=== PATIENT | female | born 1960 | race Caucasian/White ===

== ENCOUNTER 2020-02-16 14:26 | Outpatient (CLI) | payer OTHER, SELFPAY ==
--- NOTE | ~2020-02-16 | CT_ITS ---
EXAMINATION: CT ankle RT wo con DATE: 02/16/2020 15:53 INDICATION: Calcaneal nonunion TECHNIQUE: High resolution computed tomography (CT) of the right ankle and foot was performed without intravenous contrast. Additional sagittal and coronal reconstructions were performed. Automated expo sure control and iterative reconstruction technique were employed. The dose-length product was [id number] mGy-cm. COMPARISON: Right ankle MRI dated 09/24/2018 FINDINGS: Interval calcaneal osteotomy and bone grafting centered at the angle of Gissane likely for treatment of suspected lateral hindfoot impingement based upon findings of prior MRI. There is no discernible l ucency at the medial and inferior margins of the bone grafting with only minimal lucency at the bone graft interface along portions of the dorsal and lateral sides of the graft suggesting solid incorpor ation. Bone alignment appears normal with reduction in the prior suggested pes planus although this i s not diagnostically evaluated on nonweightbearing imaging. Again seen are cystic changes at the calc aneus anterior to the angle of Gissane and at the base of the sustentaculum annel as well as along the juxtaposed plantar aspect of the anterolateral calcaneus anterior to the articular surface of the po sterior facet of the subtalar joint. Mild cystic changes also is present at the tip of the lateral ma lleolus which along with the cystic change at the talus and calcaneus are likely related to chronic l ateral hindfoot impingement. There are couple small heterotopic ossicles along the anterior margin of the medial malleolus likely related to chronic anterior superficial deltoid ligament sprain. No frac ture. Bone island at the second metatarsal diaphysis. Mild polyarticular osteoarthritis at the right ankle and at multiple joints in the mid and hindfoot. No ankle joint effusion or other abnormal fluid collections. Os trigonum at the posterior recess of the ankle. Moderate-sized plantar calcaneal spur . IMPRESSION: 1. There appears to be solid incorporation of bone graft material placed at a calcaneal osteotomy und erlying the angle of Gissane likely for correction of lateral hindfoot impingement. 2. Mild polyarticular osteoarthritis at the right ankle, mid and hindfoot. Reviewed, dictated and finalized at location A. IMPRESSION: 1. There appears to be solid incorporation of bone graft material placed at a c alcaneal osteotomy underlying the angle of Gissane likely for correction of lat eral hindfoot impingement. 2. Mild polyarticular osteoarthritis at the right ankle, mid and hindfoot.
== END 2020-02-16 14:27 | disposition home or self-care (01) ==
PROVIDERS: PCP Internal Medicine; Visit Provider Podiatrist Foot & Ankle Surgery
DX: S92.014 Nondisplaced fracture of body of right calcaneus (principal); M19.071 Primary osteoarthritis, right ankle and foot
CPT/HCPCS: 73700

== ENCOUNTER 2020-11-22 14:01 | Outpatient (CLI) | payer OTHER, SELFPAY ==
--- NOTE | ~2020-11-22 | XR_ITS ---
XR knee RT 3V DATE: 11/22/2020 14:25 INDICATION: Right knee pain. Inability to bend knee or blood pressure on leg. Cortisone shot on 2020 TECHNIQUE: 3 views COMPARISON: None FINDINGS: There is distention of the suprapatellar bursa consistent with joint effusion. No fracture or dislocation, periosteal reaction or bone destruction. No radiopaque intra-articular lo ose body or chondrocalcinosis. Joint spaces are well preserved. IMPRESSION: Joint effusion Reviewed, dictated and finalized at location A. STANT PROFESSOR OF BUSINESS IMPRESSION: Joint effusion
== END 2020-11-22 14:02 | disposition home or self-care (01) ==
LOC: CHSIMG 14:02
PROVIDERS: PCP Internal Medicine; Visit Provider Internal Medicine
DX: M25.561 Pain in right knee (principal)
CPT/HCPCS: 73562

== ENCOUNTER 2020-12-11 08:06 | Outpatient (CLI) | payer OTHER, SELFPAY ==
--- NOTE | ~2020-12-11 | XR_ITS ---
EXAMINATION: XR knee RT min 4V DATE: 12/11/2020 08:30 INDICATION: Medial right knee pain TECHNIQUE: Weight bearing AP, flexed lateral and sunrise views of the right knee were obtained COMPARISON: 11/22/2020 FINDINGS: Alignment is normal. No fracture. Joint spaces are normal. Interval resolution of the prior right kn ee joint effusion. Soft tissues are unremarkable. IMPRESSION: 1. Normal right knee radiographs. Reviewed, dictated and finalized at location D.
== END 2020-12-11 08:07 | disposition home or self-care (01) ==
LOC: CHSIMG 08:08
PROVIDERS: PCP Internal Medicine; Visit Provider Orthopaedic Surgery
DX: M25.561 Pain in right knee (principal)
CPT/HCPCS: 73564

== ENCOUNTER 2021-02-21 08:37 | Outpatient (CLI) | payer OTHER, SELFPAY ==
--- NOTE | 2021-02-21 08:45 | ECG_ITS ---
Measurements Intervals [place] Rate: 57 P: 58 CA: 196 QRS: -8 QRSD: 101 T: 8 QT: 422 QTc: 411 Interpretive Statements SINUS BRADYCARDIA POOR R WAVE PROGRESSION, ANTERIOR LEADS BORDERLINE T WAVE ABNORMALITY- INFERIOR LEADS BASELINE ARTIFACT- I, III, AVR, AVL, AVF, V1-V6 BORDERLINE ECG Electronically Signed On 02-21-2021 9:06:09 CDT by Ganesh Treadwell D.O.
[2021-02-21 09:50] LABS: Anion Gap 9 mmol/L (8-16); Blood Urea Nitrogen 16 mg/dL (7-17); Calcium 9.6 mg/dL (8.4-10.2); Carbon Dioxide 26 mmol/L (22-30); Chloride 107 mmol/L (98-107); Estimated Glomerular Filt Rate > 60; Glucose 98 mg/dL (65-105); Potassium 4.3 mmol/L (3.4-5.0); Sodium 142 mmol/L (137-145)
== END 2021-02-21 08:38 | disposition home or self-care (01) ==
LOC: ANHSURGERY 08:42
PROVIDERS: Anesthesiology; PCP Internal Medicine; Visit Provider Orthopaedic Surgery
DX: Z01.818 Encounter for other preprocedural examination (principal); I48.91 Unspecified atrial fibrillation; Z51.81 Encounter for therapeutic drug level monitoring; Z79.899 Other long term (current) drug therapy; R00.1 Bradycardia, unspecified; I10 Essential (primary) hypertension
CPT/HCPCS: 36415; 80048; 93005

== ENCOUNTER → 2021-03-09 01:16 | Outpatient (CLI) | payer OTHER, SELFPAY ==
[2021-03-09 17:56] LABS: SARS-CoV-2 RNA PCR Negative
== END ==
PROVIDERS: PCP Internal Medicine; Visit Provider Orthopaedic Surgery
DX: Z01.812 Encounter for preprocedural laboratory examination (principal); Z20.822 Contact with and (suspected) exposure to COVID-19
CPT/HCPCS: C9803; U0003; U0005

== ENCOUNTER 2021-03-13 01:00 | Day surgery (SDC) | payer OTHER, SELFPAY ==
[2021-02-14 13:29] VITALS: BMI 35.4
--- NOTE | 2021-03-07 08:34 | PC.NURSE ---
Pt states no changes in health history or medications since initial interview. New Covid date/time and pre-op instructions reviewed with pt. Pt denies any questions at this time.
--- NOTE | 2021-03-12 13:51 | WPDANESEPPF ---
Anes - Initial Pre Proc Eval Procedure: Operation Date: 03/13/21 13:30 Proposed Procedures p Right Knee Arthroscopy With Allograft Reconstruction Of Medial Femoral Condyle, Proceed As Indicated - Vahid Mccormick MD Date/Time: 03/12/21 13:51 Surgeon: Vahid Mccormick MD Pre Op Diagnosis: lateral/medial meniscus tear, Right knee Patient Data Age: 60 Gender: F Height: 1.79 m Weight: 113.4 kg Allergies Allergy/AdvReac Type Severity Reaction Status Date / Time No Known Allergies Allergy Verified 03/07/21 08:33 Home Medications Medication Instructions Recorded Confirmed Type aspirin 325 mg tablet 325 mg PO HS 12/12/20 03/07/21 History atorvastatin 10 mg tablet 10 mg PO HS 12/12/20 03/07/21 History escitalopram oxalate 10 mg tablet 10 mg PO DAILY 12/12/20 03/07/21 History magnesium oxide 400 mg PO DAILY 12/12/20 03/07/21 History propafenone 225 mg 225 mg PO BID 12/12/20 03/07/21 History capsule,extended release 12 hr spironolactone 25 mg tablet 25 mg PO DAILY 12/12/20 03/07/21 History chlorhexidine gluconate 4 % 1 applic TOPICAL ONCE #237 ml 02/14/21 03/07/21 Rx topical liquid Patient hx anesthesia problems: none Family hx anesthesia problems: none PMFSH Past Medical History Medical History (Updated 03/12/21 @ 13:53 by Shlomo Tello MD) Afib Anxiety Depression HTN (hypertension) Hyperlipidemia Obesity Osteochondritis dissecans of knee Right knee pain Surgical History Surgical History History of ankle surgery 2019, Dr. Susan Elias Family History Family History Other Asthma Cancer Heart disease Social History Social History Alcohol intake: current Drinks per week: 2 Substance use: never Substance use type: does not use Living arrangements: with family Gender identity (if verbalized by the patient): Female Spiritual care concerns: No Anes - Eval Final PreProcedure Day of Procedure 03/12/21 13:51 Patient weight: obese Heart: regular rate and rhythm Lungs: clear to auscultation and normal air movement Airway: Mallampati scale class II Neurological: alert and oriented Last oral intake: >/= 8 hours ASA classification: III Emergent: no Anesthetic plan: proceed Anesthesia type and monitoring: general LMA Informed Consent: The patient's anesthetic plan and its attendant risks and benefits were discussed with the patient/family/POA. Questions were solicited and answers provided to the satisfaction of the patient/family/POA.
[2021-03-13] VITALS (8 sets, daily range): BP systolic 125–163; BP diastolic 63–95; PULSE 57–67; RESP 10–18; TEMP 36.1–36.3; O2SAT 95–99
--- NOTE | 2021-03-13 07:23 | WPDHPUPDATE1 ---
History and Physical Update Update Date/Time: 03/13/21 07:23 History and Physical has been reviewed, including an updated exam of the patient. There are NO changes in the patient's condition. Risks, benefits, and alternatives have been discussed and questions answered. Patient agrees to proceed with procedure.
[2021-03-13] MEDS: ACETAMINOPHEN 500 MG TABLET 1000 MG PO (12:02)
[2021-03-13] MEDS: CELECOXIB 200 MG CAPSULE PO (12:06)
[2021-03-13] MEDS: LACTATED RINGERS 1,000 ML 30 ML IV CONT ×2 (12:40→15:52)
[2021-03-13] MEDS: ceFAZolin 2 GM/D5W 50 ML 2 GM/50 ML BAG IVPB (13:35)
--- NOTE | 2021-03-13 15:27 | W.PM.PROC2 ---
Procedure Note - Detailed Date of Procedure 03/13/21 Pre-op Diagnosis lateral/medial meniscus tear, osteochondral defect medial femoral condyle Right knee Post-op Diagnosis same Procedure Performed RIGHT KNEE SCOPE Surgeon Vahid Mccormick MD Anesthesia general Description of Procedure PATIENT WAS TAKEN TO THE OR. RIGHT LEG WAS PREPPED AND DRAPED STERILE. TROCARS WERE PLACED IN THE USUAL FASHION. CAMERA WAS INTRODUCED. THERE WAS SEVERE CHONDROMALACIA TO THE PATELLA FEMORAL JOINT. THERE WAS A LOT OF SYNOVITIS IN ALL COMPARTMENTS. THE MEDIAL COMPARTMENT SHOWED CHONDROMALACIA TO THE MEDIAL FEMORAL CONDYLE. THE OSTEOCHONDRAL DEFECT WAS IDENTIFIED ON THE MAIN WEIGHT BEARING SURFACE. THE CARTILAGE WAS INTACT AND THERE WAS NO OBVIOUS DEFECT TO THE SURFACE CARTILAGE ASIDE FROM AN INDENTATION TO THE SURFACE CARTILAGE. THERE WAS NO OBVIOUS BONE VISIBLE OR SUBCHONDRAL BONE VISIBLE. IT WAS DECIDED TO OBSERVE THE LESION AND NOT PROCEED WITH ALLOGRAFT RECONSTRUCTION. A SHAVER WAS USED TO PREFORM A CHONDROPLASTY OVER THE GRADE 2 CHONDROMALACIA ON BOTH THE MEDIAL FEMORAL CONDYLE AND THE PLATEAU. THERE WAS A COMPLEX MEDIAL MENISCUS TEAR AT THE POSTERIOR ROOT. THE TEAR WAS RESECTED WITH A BITER AND A SHAVER DOWN TO A SMOOTH BASE. ABOUT 10% OF THE MENISCUS WAS REMOVED. THE ACL WAS INTACT. THE LATERAL MENISCUS WAS TORN AT THE ANTERIOR HORN. THE TEAR WAS RESECTED. THE LATERAL COMPARTMENT HAD GRADE 2 CHONDROMALACIA AT THE LATERAL PLATEAU. CHONDROPLASTY WAS PREFORMED. A SYNOVECTOMY WAS PREFORMED WELL. THE PATELLO FEMORAL JOINT UNDERWENT CHONDROPLASTY. THERE WAS GRADE 3 CHONDROMALACIA IN MOST OF THE PATELLA. SYNOVECTOMY WAS PREFORMED IN THE SUPERIOR MEDIAL COMPARTMENT. THE WOUNDS WERE APPROXIMATED WITH 4.0 NYLON. STERILE DRESSING WAS APPLIED. PATIENT WAS EXTUBATED. Estimated Blood Loss 5 Complications No immediate complications Condition stable Disposition PACU
--- NOTE | 2021-03-13 15:56 | SUR.PHASEI ---
PT AWAKE AND ALERT. TALKATIVE. DENIES PAIN. SITTING UPRIGHT ON STRETCHER.
--- NOTE | 2021-03-13 16:11 | SUR.PHASEI ---
PT AWAKE AND ALERT. TALKATIVE. STATES MILD SORENESS. DENIES NEED FOR PAIN MEDS. STATES SHE IS READY TO GO HOME.
[2021-03-13] MEDS: oxyCODONE HCL (*CRX) 5 MG TAB IR PO (16:49)
== END 2021-03-13 17:25 | disposition home or self-care (01) ==
PROVIDERS: PCP Internal Medicine; Visit Provider Orthopaedic Surgery
PROC: (CPT 29870; principal; 2021-03-13 13:30)
DX: S83.231A Complex tear of medial meniscus, current injury, right knee, initial encounter (principal); S83.281A Other tear of lateral meniscus, current injury, right knee, initial encounter; M94.261 Chondromalacia, right knee; M65.861 Other synovitis and tenosynovitis, right lower leg; X50.0XXA Overexertion from strenuous movement or load, initial encounter; I48.91 Unspecified atrial fibrillation; I10 Essential (primary) hypertension; E78.5 Hyperlipidemia, unspecified; F41.8 Other specified anxiety disorders; Z79.82 Long term (current) use of aspirin; E66.9 Obesity, unspecified; Z68.38 Body mass index [BMI] 38.0-38.9, adult
CPT/HCPCS: 29880; A9270; C9803; J0690; J1100; J2250; J2405; J2704; J3010; J7120; U0003; U0005

== ENCOUNTER 2021-06-25 07:26 | Outpatient (CLI) | payer OTHER, SELFPAY ==
--- NOTE | ~2021-06-25 | MM_ITS ---
EXAMINATION: MM screening [facility] BI w ronaldo HISTORY: Screening TECHNIQUE: Craniocaudal and mediolateral oblique 3-D tomosynthesis images were obtained and synthetic 2-D images were generated. CAD analysis was submitted and interpreted. COMPARISON: Comparison to multiple prior studies sequentially, with oldest reviewed study dated 02/2012. BREAST PARENCHYMAL COMPOSITION: There are scattered areas of fibroglandular density. FINDINGS: Left breast asymmetries are stable. There is no evidence of suspicious mass, calcification, or architectural distortion to suggest malignancy in either breast. There has been no suspicious int erval change. IMPRESSION: 1. No mammographic evidence of malignancy. 2. Recommend routine screening mammography in one year. BI-RADS Category 1: Negative Reviewed, dictated and finalized at location A.
== END 2021-06-25 07:27 | disposition home or self-care (01) ==
LOC: ANHIMG 07:29
PROVIDERS: PCP Internal Medicine; Visit Provider Obstetrics & Gynecology
DX: Z12.31 Encounter for screening mammogram for malignant neoplasm of breast (principal)
CPT/HCPCS: 77063; 77067

== ENCOUNTER 2021-11-05 11:18 | Outpatient (CLI) | payer OTHER, SELFPAY ==
[2021-11-05 12:50] LABS: SARS-CoV-2 RNA PCR Negative (Negative)
== END 2021-11-05 11:19 | disposition home or self-care (01) ==
LOC: CHSLAB 11:20
PROVIDERS: PCP Internal Medicine; Visit Provider Internal Medicine
DX: R05.9 Cough, unspecified (principal); Z20.822 Contact with and (suspected) exposure to COVID-19
CPT/HCPCS: C9803; U0003; U0005

== ENCOUNTER 2022-01-29 11:34 | Outpatient (CLI) | payer OTHER, SELFPAY ==
[2022-01-29 13:07] LABS: Influenza A QL RT-PCR Negative (Negative); Influenza B QL RT-PCR Negative (Negative); SARS-CoV-2 RNA PCR Positive (Negative)
== END 2022-01-29 11:35 | disposition home or self-care (01) ==
PROVIDERS: PCP Internal Medicine; Visit Provider Internal Medicine
DX: U07.1 COVID-19 (principal); R51.9 Headache, unspecified; R05.9 Cough, unspecified
CPT/HCPCS: 87502; C9803; U0003; U0005

== ENCOUNTER 2022-11-10 07:53 | Outpatient (CLI) | payer OTHER, SELFPAY ==
--- NOTE | ~2022-11-10 | MM_ITS ---
EXAMINATION: MM screening [facility] BI w ronaldo HISTORY: Screening mammogram TECHNIQUE: Craniocaudal and mediolateral oblique 3-D tomosynthesis images were obtained and synthetic 2-D images were generated. CAD analysis was submitted and interpreted. COMPARISON: 06/25/2021, 04/26/2019, 04/22/2018 bilateral screening mammogram examinations BREAST PARENCHYMAL COMPOSITION: There are scattered areas of fibroglandular density. FINDINGS: There is no evidence of suspicious mass, calcification, or architectural distortion to sugg est malignancy in either breast. There has been no suspicious interval change. IMPRESSION: 1. No mammographic evidence of malignancy. 2. Recommend routine screening mammography in one year. BI-RADS Category 1: Negative Reviewed, dictated and finalized at location A. RESEARCH
== END 2022-11-10 07:54 | disposition home or self-care (01) ==
LOC: ANHIMG 07:54
PROVIDERS: PCP Internal Medicine; Visit Provider Obstetrics & Gynecology
DX: Z12.31 Encounter for screening mammogram for malignant neoplasm of breast (principal)
CPT/HCPCS: 77063; 77067

== ENCOUNTER 2024-02-24 15:28 | Outpatient (CLI) | payer OTHER, SELFPAY ==
--- NOTE | ~2024-02-24 | MM_ITS ---
EXAMINATION: MM screening [facility] BI w ronaldo HISTORY: Screening TECHNIQUE: Craniocaudal and mediolateral oblique 3-D tomosynthesis images were obtained and synthetic 2-D images were generated. CAD analysis was submitted and interpreted. COMPARISON: Comparison to multiple prior studies sequentially, with oldest reviewed study dated 02/20. BREAST PARENCHYMAL COMPOSITION: Not dense: There are scattered areas of fibroglandular density. FINDINGS: There is no evidence of suspicious mass, calcification, or architectural distortion to sugg est malignancy in either breast. There has been no suspicious interval change. IMPRESSION: 1. No mammographic evidence of malignancy. 2. Recommend routine screening mammography in one year. BI-RADS Category 1: Negative Reviewed, dictated and finalized at location B.
== END 2024-02-24 15:29 | disposition home or self-care (01) ==
LOC: ANHIMG 15:30
PROVIDERS: PCP Internal Medicine; Visit Provider Obstetrics & Gynecology
DX: Z12.31 Encounter for screening mammogram for malignant neoplasm of breast (principal)
CPT/HCPCS: 77063; 77067

== ENCOUNTER 2024-09-07 11:36 | Outpatient (CLI) | payer OTHER, SELFPAY ==
--- NOTE | ~2024-09-07 | XR_ITS ---
Lumbosacral Spine: AP and lateral views Clinical History: Pain Findings: Mild levoscoliosis.. No acute fracture evident. There is mild grade 1 retrolisthesis of L2 over L3. There is severe degenerative disc narrowing at L4-L5. There is moderate degenerative change at the remaining lumbar levels. There is moderate to advanced facet arthropathy from L4 through S1. T he sacroiliac joints are normally outlined. Impression: Advanced degenerative spondylosis of the lower lumbar spine, as above. Mild to moderate degenerative change of the upper lumbar spine. Reviewed, dictated and finalized at location M. ITE CARE PROVIDER Impression: Advanced degenerative spondylosis of the lower lumbar spine, as above. Mild to moderate degenerative change of the upper lumbar spine.
--- NOTE | ~2024-09-07 | XR_ITS ---
XR hip RT min 2V 09/07/2024 12:14 Indication: Back and hip pain Procedure: 2 views right hip Comparison: No prior studies for comparison. Findings: Mild osteoarthritis of the right hip. No fracture or traumatic malalignment. No soft tissue abnormality. No foreign bodies. Impression: 1: Mild osteoarthritis of the right hip. Reviewed, dictated and finalized at location B. K MILL OPERATOR Impression: 1: Mild osteoarthritis of the right hip.
[2024-09-07 11:52] LABS: Basophils Absolute Auto 0.03 K/mm3 (0.00-0.10); Basophils Percent Auto 0.5 % (0.0-1.0); Eosinophils Absolute Auto 0.17 K/mm3 (0.02-0.50); Eosinophils Percent Auto 2.6 % (1.0-6.0); Hematocrit 42.8 % (35.0-49.0); Hemoglobin 14.1 g/dL (12.0-15.0); Immature Granulocyte Absolute 0.03 K/mm3 (0.00-0.00); Immature Granulocyte Percent A 0.5 % (0.0-0.0); Lymphocytes Absolute Auto 1.88 K/mm3 (1.10-4.50); Lymphocytes Percent Auto 28.3 % (18.0-42.0); Mean Corpuscular HGB Conc 32.9 g/dL (32-36); Mean Corpuscular Hemoglobin 27.9 pg (27.0-31.0); Mean Corpuscular Volume 84.6 fL (78.0-102.0); Mean Platelet Volume 9.2 fl (9.2-11.8); Monocytes Absolute Auto 0.55 K/mm3 (0.10-0.90); Monocytes Percent Auto 8.3 % (2.0-11.0); Neutrophils Absolute Auto 3.98 K/mm3 (1.70-7.20); Neutrophils Percent Auto 59.8 % (50.0-70.0); Platelet Count Result 316 K/mm3 (150-420); Red Blood Count 5.06 M/mm3 (4.20-5.40); Red Cell Distribution Width 14.6 % (11.6-14.4); White Blood Count 6.6 K/mm3 (4.8-10.8)
[2024-09-07 12:05] LABS: Add Urine Microscopic? NO; Appearance Urine Clear (Clear); Bilirubin Urine Negative (Negative); Blood Urine Negative (Negative); Color Urine Light Yellow (Yellow); Glucose Urine UA Negative (Negative); Ketones Urine Negative (Negative); Leukocyte Esterase Ur Negative (Negative); Nitrate Urine Negative (Negative); Protein Urine Negative (Negative); Specific Grav Ur >= 1.030 (1.010-1.020); Urobilinogen Urine 0.2 mg/dL (0.2-1.0); pH Urine 5.5 (5.0-8.0)
[2024-09-07 13:01] LABS: Alanine Aminotransferase 29 U/L (14-59); Albumin Level 3.9 g/dL (3.4-5.0); Alkaline Phosphatase 103 U/L (46-116); Anion Gap 13 mmol/L (4-12); Aspartate Amino Transferase 14 U/L (15-37); Bilirubin,Total 0.3 mg/dL (0.00-1.00); Blood Urea Nitrogen 21 mg/dL (7-18); Calcium 9.8 mg/dL (8.5-10.1); Carbon Dioxide 24 mmol/L (21-32); Chloride 107 mmol/L (98-108); Cholesterol 155 mg/dL (0-200); Estimated Glomerular Filt Rate > 60; Glucose 91 mg/dL (70-99); HDL Direct 38 mg/dL (40-60); LDL Cholesterol Calculated 84 mg/dL (<130); Osmolality Calculated 301 mOsm/kg (285-295); Potassium 4.4 mmol/L (3.5-5.1); Sodium 144 mmol/L (136-145); Thyroid Stimulating Hormone 1.13 uIU/mL (0.36-3.74); Total Protein 6.7 g/dL (6.4-8.2); Triglycerides 163 mg/dL (0-150)
== END 2024-09-07 11:37 | disposition home or self-care (01) ==
PROVIDERS: PCP Internal Medicine; Visit Provider Internal Medicine
DX: Z00.00 Encounter for general adult medical examination without abnormal findings (principal); I48.91 Unspecified atrial fibrillation; Z79.01 Long term (current) use of anticoagulants; M54.50 Low back pain, unspecified; M43.06 Spondylolysis, lumbar region; M16.11 Unilateral primary osteoarthritis, right hip
CPT/HCPCS: 36415; 72100; 73502; 80053; 80061; 81003; 84443; 85025

== ENCOUNTER 2025-02-24 09:09 | Outpatient (CLI) | payer OTHER, SELFPAY ==
--- NOTE | ~2025-02-24 | MM_ITS ---
EXAMINATION: MM screening derek BI w ronaldo HISTORY: Screening TECHNIQUE: Craniocaudal and mediolateral oblique 3-D tomosynthesis images were obtained and synthetic 2-D images were generated. CAD analysis was submitted and interpreted. COMPARISON: Comparison to multiple prior studies sequentially, with oldest reviewed study dated 04/26. BREAST PARENCHYMAL COMPOSITION: Not dense: There are scattered areas of fibroglandular density. FINDINGS: Stable low-density mass in the retroareolar location of the left breast. There is suggestio n of architectural distortion posterior to the nipple on the left MLO view, not well demonstrated on CC view. The right breast is stable without evidence for malignancy. IMPRESSION: 1. Possible new focal area of architectural distortion subareolar location of the left breast. 2. Additional mammographic views and possible breast ultrasound are recommended. BI-RADS Category 0: Incomplete: Needs additional imaging evaluation. Reviewed, dictated and finalized at location A. IMPRESSION: 1. Possible new focal area of architectural distortion subareolar location of t he left breast. 2. Additional mammographic views and possible breast ultrasound are recommended . BI-RADS Category 0: Incomplete: Needs additional imaging evaluation.
--- OUTSIDE RECORDS SUMMARY | 2025-02-24 09:13 | XMS_ITS | Referral Summary ---
Author Organization [facility] [address] [place] [address] Care Team Providers Care Tavern Car Attendant Name Role Phone Hugo Johnson MD Primary Care Provider [phone] Greg Dangelo MD Unavailable [phone] Encounters Date Type Department Care Team Description 01/20/2025 8:45 AM CDT Office Visit [facility] Cardiology [address] [place] [address] Alfredo Bo MD PAF (paroxysmal atrial fibrillation) (CMS/HCC) (Primary Dx); Hyperlipidemia LDL goal <130; Essential hypertension; Pulmonary HTN (HCC); DEBORAH (obstructive sleep apnea) from Last 3 Months Allergies No known active allergies Medications magnesium oxide (MAG-OX) 400 mg (241.3 mg elemental magnesium) tabletIndicatio ns:hypomagnesem ia Take 1 tablet (400 mg total) by mouth daily Active [id number] rn-dql-yvzj-bor 600 mg calcium- 800 unit-50 mg tablet Take 1,200 mg by mouth Active atorvastatin (LIPITOR) 10 mg tablet Take 1 tablet (10 mg total) by mouth daily 90 tablet 3 07/11/2024 Active propafenone SR (RYTHMOL SR) 225 mg 12 hr capsule Take 1 capsule (225 mg total) by mouth 2 (two) times a day 180 capsule 3 07/11/2024 Active rivaroxaban (Xarelto) 20 mg tablet Take 1 tablet (20 mg total) by mouth daily with dinner 90 tablet 3 07/11/2024 Active spironolactone (ALDACTONE) 25 mg tablet Take 1 tablet (25 mg total) by mouth daily 90 tablet 3 07/11/2024 Active Active Problems Problem Noted Date Diagnosed Date Morbid (severe) obesity due to excess calories 0 11/26/2023 Other thrombophilia 02/10/2023 Aftercare following right knee joint replacement surgery 03/18/2022 Primary osteoarthritis of right knee 02/10/2022 Overview (02/10/2022): Added automatically from request for surgery [id number] Preop cardiovascular exam 01/23/2022 DEBORAH (obstructive sleep apnea) 12/24/2017 Pulmonary HTN 12/24/2017 Hyperlipidemia LDL goal <130 12/24/2017 Essential hypertension 12/24/2017 PAF (paroxysmal atrial fibrillation) 02/11/2014 Overview (01/02/2017): A-fib Social History Tobacco Use Types Packs/Day Years Used Date Smoking Tobacco: Never Smokeless Tobacco: Never Tobacco Cessation:Counseling Given: Not Answered Alcohol Use Standard Drinks/Week Comments Yes 3 (1 standard drink = 0.6 oz pur e alcohol) AUDIT-C Answer Date Recorded Q1: How often do you have a drink containing alc ohol? 2-3 times a week 02/20/2022 Q2: How many drinks containi ng alcohol do you have on a typical day when you are drinking? 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 Gender Identity Not on file Sexual Orientation Not on file Last Filed Vital Signs Vital Sign Reading Time Taken Comments Blood Pressure 110/70 01/20/2025 8:28 AM CDT Pulse 55 01/20/2025 8:28 AM CDT Temperature 36.7 C (98.1 F) 03/03/2022 11:52 AM CDT Respiratory Rate 10 03/03/2022 11:50 AM CDT Oxygen Saturation 96% 01/20/2025 8:28 AM CDT Inhaled Oxygen Concentration - - Weight 111.1 kg (245 lb) 01/20/2025 8:28 AM CDT Height 180.3 cm (5' 11) 01/20/2025 8:28 AM CDT Body Mass Index 34.17 01/20/2025 8:28 AM CDT Plan of Treatment Not on file Medical Devices Implanted Type Area Community Arts Officer Device Identifier Shelf Expiration Date Model / Serial / Lot Kwasi Elder Implanted:Qty: 1 on 09/30/2019 by Agnes Elias DPM at [facility] Right: Calcaneus [employer] [id number] 07/11/2027 [id number] / / [id number] Description:[facility] ITEM# [id number] [employer] Cement Bone Simplex Gentamicin High Viscosity [facility] 6195-1-001 - Sn/A - [id number] Implanted:Qty: 1 on 02/28/2022 by Greg Dangelo MD at [facility] [employer] [facility] 04/27/2023 6195-1-001 / N/A / [id number] [employer] Cement Bone Simplex Gentamicin High Viscosity [facility] 6195-1-001 - Sn/A - [id number] Implanted:Qty: 1 on 02/28/2022 by Greg Dangelo MD at [facility] [employer] [facility] 04/27/2023 6195-1-001 / N/A / [id number] [employer] [id number] Attune S+ Cement Fix Bearing Knee 7 Baseplate Tibial - Sn/A - [id number] Implanted:Qty: 1 on 02/28/2022 by Greg Dangelo MD at [facility] [employer] [id number] 11/26/2031 [id number] / N/A / [id number] [employer] Attune Cemented Posterior Stabilize Knee Right 8 Component [id number] - Sn/A - [id number] Implanted:Qty: 1 on 02/28/2022 by Greg Dangelo MD at [facility] [employer] C1776 10/28/2031 [id number] / N/A / [id number] [employer] Attune 10mm Posterior Stabilize Fix Bearing Knee 8 Insert Tibial [id number] - Sn/A - [id number] Implanted:Qty: 1 on 02/28/2022 by Greg Dangelo MD at [facility] [employer] C1776 04/27/2026 [id number] / N/A / [id number] Procedures Procedure Name Priority Date/Time Associated Diagnosis Comments POCT LIPID PANEL Routine 01/20/2025 8:24 AM CDT Hyperlipidemia LDL goal <130 from Last 3 Months Results * POCT lipid panel (01/20/2025 8:24 AM CDT) Cholesterol, POC 129 mg/dL HDL, POC 21 mg/dL Triglycerides, POC 7 mg/dL LDL Cholesterol POC 89 mg/dL Chol/HDL Ratio, POC 4.2 Non-HDL Cholesterol, POC 108 mg/dL Cholesterol Total, POC 129 mg/dL Capillary blood 01/20/2025 8 :24 AM CDT Alfredo Bo MD POINT OF CARE TEST ORDERA BLES Final Result from Last 3 Months Insurance [facility] PPO [place] [facility] PPO Advance Directives For more information, please contact: [phone] * Full Code (Latest Code Status on File) Date Activated Date Inactivated Comments 02/28/2022 10:52 AM 02/28/2022 7:04 PM * Full Code Date Activated Date Inactivated Comments 09/30/2019 2:07 PM 09/30/2019 8:07 PM Care Teams Tavern Car Attendant Relationship Specialty Start Date End Date Hugo Johnson MD PCP - General 12/26/16 Greg Dangelo MD Surgeon Orthopedic Surgery 02/28/22
--- OUTSIDE RECORDS SUMMARY | 2025-02-24 09:13 | XMS_ITS | Clinical Summary ---
Author Organization [facility] [employer] Address [address] [place] [address] Care Team Providers Care Milieu Manager Name Role Phone Unavailable Primary Care Provider Unavailabl e Source Comments [facility] [employer],non-owned Affiliates and Associated Physician Practices is amultiple site organization consisting of ambulatory clinics and hospital sitesin [place], [place], [place] and [place]. This disclosure is being madepursuant to the Care Everywhere program and may not contain all information available regarding this patient. Last updated 18.[facility] [employer] Social History Tobacco Use Types Packs/Day Years Used Date Smoking Tobacco: Never Assessed Comments Unknown Sex and Gender Information Value Date Recorded Sex Assigned at Not on file Legal Sex Female 3:11 PM CDT Gender Identity Not on file Sexual Orientation Not on file Plan of Treatment Health Maintenance Due Date Last Done Comments COLOGUARD (AGES 45-75) - COL ON CA SCREENING 1962 COLON MONITORING 1962 COLONOSCOPY - COLON CA SCREENING 1962 CT COLONOGRAPHY - COLON CA SCREENING 1962 Colorectal Cancer Screening 1962 FIT - COLON CA SCREENING 1962 FLEX SIG - COLON CA SCREENING 1962 LIPID TESTING 1962 MAMMOGRAM 1962 PAP SMEAR 1962 HIV SCREENING 1977 HEPATITIS C SCREENING 10/29/1980 DTAP/TDAP/TD VACCINES (1 - Tdap) 1981 PNEUMOCOCCAL VACCINE 50+ (1 of 1 - PCV) 2012 ZOSTER VACCINE (1 of 2) 2012 COVID-19 VACCINE ( - 2023-2 5 season) 2024 DEPRESSION SCREENING 09/28/2024 INFLUENZA VACCINE (Season Ended) 2025 Respiratory Syncytial Virus (RSV) Vaccine Pt: or over 60 yrs (1 - 1-dose 75+ series) 2037 HEPATITIS B VACCINE Aged Out No longe r eligible based on patient's age to complete this topic HIB VACCINE Aged Out No longer eligi ble based on patient's age to complete this topic HPV VACCINE Aged Out No longer eligi ble based on patient's age to complete this topic MENINGOCOCCAL (Group B) VACC INE SHARED DECISION-MAKING Aged Out No longer eligibl e based on patient's age to complete this topic MENINGOCOCCAL GROUPS A/C/Y/W VACCINE Aged Out No longer eligible b ased on patient's age to complete this topic Insurance [facility]
--- OUTSIDE RECORDS SUMMARY | 2025-02-24 09:13 | XMS_ITS | Clinical Summary ---
Author Organization [facility] [address] Address [address] [place] [address] Care Team Providers Care Operations Officer Name Role Phone Hugo Johnson MD Primary Care Provider [phone] Grge Dangelo MD Unavailable [phone] Allergies No known active allergies Medications magnesium oxide (MAG-OX) 400 mg (241.3 mg elemental magnesium) tabletIndicatio ns:hypomagnesem ia Take 1 tablet (400 mg total) by mouth daily Active dhj-Q3-gwf90-zi uc-unn-nwdb-bor 600 mg calcium- 800 unit-50 mg tablet [...] (02/10/2022): Added automatically from request for surgery [id number] Preop cardiovascular exam 01/23/2022 DEBORAH (obstructive sleep apnea) 12/24/2017 Pulmonary HTN 12/24/2017 Hyperlipidemia LDL goal <130 12/24/2017 Essential hypertension 12/24/2017 PAF (paroxysmal atrial fibrillation) 02/11/2014 Overview (01/02/2017): A-fib Encounters Date Type Department Care Team Description 01/20/2025 8:45 AM CDT Office Visit [facility] Cardiology [address] [place] [address] Alfredo Bo MD PAF (paroxysmal atrial fibrillation) (CMS/HCC) (Primary Dx); Hyperlipidemia LDL goal <130; Essential hypertension; Pulmonary HTN (HCC); DEBORAH (obstructive sleep apnea) from Last 3 Months Surgical History Surgery Date Site/Laterality Comments TUBAL LIGATION Bilateral tubal ligation COLONOSCOPY KNEE ARTHROSCOPY Right Medical History Medical History Date Comments Sleep apnea mild no thee e Atrial fibrillation (HCC) Family History Medical History Relation Name Comments Bone cancer Brother 3 Bone cancer; Ca use of : Bone cancer Bone cancer Brother 4 Bone cancer; Ca use of : Bone cancer Lung cancer Mother Cancer, lung; C ause of : Cancer, lung Relation Name Status Comments Brother 1 (Age 14) Brother 2 (Age 49) Brother 3 Brother 4 Mother (Age 72) Social History Tobacco Use Types Packs/Day Years [...] on file 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 Gender Identity Not on file Sexual Orientation Not on file Obstetrics History Last Filed Vital Signs Vital Sign Reading [...] 01/20/2025 8:28 AM CDT Plan of Treatment Health Maintenance Due Date Last Done Comments Breast Cancer Screening-Mammogram 1962 Cervical Cancer Screening 1962 Colon Cancer Screening-Colonoscopy 1962 Depression Screening 1962 Hepatitis C Screening 1962 Hepatitis B Screening 1980 Regular Well Visit/Exam 18-64 1980 Zoster Vaccine (2 of 2) 10/08/2020 08/13/2020 DTaP/Tdap/Td Vaccine (2 - Td or Tdap) 01/05/2024 01/04/2014 Covid-19 Vaccine (3 - 2023-2 5 season) 2024 08/28/2021, 12/03/2020 Influenza Vaccine (Season Ended) 2025 07/09/2020, 08/02/2012 Pneumococcal vaccine <65 Aged Out No longer eligible based on patient's age to complete this topic Medical Devices Implanted Type Area After School Program Coordinator Device Identifier Shelf Expiration Date Model / Serial / Lot Biofoam Jama Wedge Implanted:Qty: 1 on 09/30/2019 by Agnes Elias DPM at [facility] Right: Calcaneus navabi [id number] 07/11/2027 [id number] / / [id number] Description:[facility] ITEM# [id number] [employer] Cement Bone Simplex Gentamicin High Viscosity 40gm 6195-1-001 - Sn/A - [id number] Implanted:Qty: 1 on 02/28/2022 by Greg Dangelo MD at [facility] [employer] [id number] 04/27/2023 6195-1-001 / N/A / [id number] [employer] Cement Bone Simplex Gentamicin High Viscosity 40gm 6195-1-001 - Sn/A - [id number] Implanted:Qty: 1 on 02/28/2022 by Greg Dangelo MD at [facility] [employer] [id number] 04/27/2023 6195-1-001 / N/A / [id number] [employer] [id number] Attune S+ Cement Fix Bearing Knee 7 Baseplate Tibial - Sn/A - [id number] Implanted:Qty: 1 on 02/28/2022 by Greg Dangelo MD at [facility] [employer] [id number] 11/26/2031 [id number] / N/A / [id number] [employer] Attune Cemented Posterior Stabilize Knee Right 8 Component [id number] - Sn/A - [id number] Implanted:Qty: 1 on 02/28/2022 by Greg Dangelo MD at [facility] [employer] C1776 10/28/2031 [id number] / N/A / [id number] [employer] Attune 10mm Posterior Stabilize Fix Bearing Knee 8 Insert Tibial [id number] - Sn/A - [id number] Implanted:Qty: 1 on 02/28/2022 by Greg Dangelo MD at [facility] [employer] C1776 04/27/2026 [id number] / N/A / [id number] Procedures Procedure Name Priority Date/Time Associated Diagnosis [...] Final Result from Last 3 Months Insurance [employer] PPO [employer] PPO Advance Directives For more information, please contact: [phone] * Full Code (Latest Code Status on File) Date Activated Date Inactivated Comments 02/28/2022 10:52 AM 02/28/2022 7:04 PM * Full Code Date Activated Date Inactivated Comments 09/30/2019 2:07 PM 09/30/2019 8:07 PM Care Teams Operations Officer Relationship Specialty Start Date End Date Hugo Johnson MD PCP - General 12/26/16 Greg Dangelo MD Surgeon Orthopedic Surgery 02/28/22
--- OUTSIDE RECORDS SUMMARY | 2025-02-24 09:13 | XMS_ITS | Encounter Summary ---
Author Organization [facility] Address [address] [place] [address] Care Team Providers Care Grass Cutter Name Role Phone Unavailable Primary Care Provider Unavailabl e Encounter Details Date Type Department Care Team (Late st Contact Info) Description 04/11/2024 Lab Requisition [facility] - DermPath Lab [address] [facility], [place] [address] Ailyn Bhatt DO [address] [facility] [address] [place] [address] Social History Tobacco Use Types Packs/Day Years Used Date Smoking Tobacco: Never Assessed Comments Unknown Sex and Gender Information Value Date Recorded Sex Assigned at Not on file Legal Sex Female 3:11 PM CDT Gender Identity Not on file Sexual Orientation Not on file documented as of this encounter Plan of Treatment Not on file documented as of this encounter Procedures Procedure Name Priority Date/Time Associated Diagnosis Comments DERMATOPATHOLOGY Routine 04/11/2024 2:54 PM CDT documented in this encounter Results * DERMATOPATHOLOGY (04/11/2024 2:54 PM CDT) Case Report Dermatopathology Report Case: [id number] Authorizing Provider: Ailyn Bhatt DO Collected: 04/11/2024 02:54 PM Ordering Location: [facility] Physician [facility] - Received: 04/12/2024 11:38 AM DermPath Lab Pathologist: Dora Bagley MD Specimen: Skin, left upper back 11:31 AM CDT DERMATOPATHOLOGY LABORATORY Final Diagnosis Specimen A. SKIN, left upper back: HYPERPLASTIC (HYPERTROPHIC) ACTINIC KERATOSIS (L57.0) 4 11:31 AM CDT DERMATOPATHOLOGY LABORATORY at 1131 CDT Clinical History R/O NMSC 11:31 AM CDT DERMATOPATHOLOGY LABORATORY Gross Description Specimen A: Received is one formalin filled container labeled with the patient's name and designated left upper back. The specimen consists of a shave biopsy measuring 8x8x2 mm. Jar 0. 11:31 AM CDT DERMATOPATHOLOGY LABORATORY Microscopic Description Specimen A. SKIN, left upper back: There is hyperkeratosis alternating with parakeratosis. There is epidermal hyperplasia with disorderly maturation of keratinocytes with nuclear pleomorphism confined to the lower half of the epidermis. 11:31 AM CDT DERMATOPATHOLOGY LABORATORY Disclaimer An external and internal positive and negative controls are appropriate for the histochemical, immunohistochemical and immunofluorescence stain(s) in this case (if any), except where stated explicitly. The performance characteristics of the stain(s) cited in this report were developed and its performance characteristic determined by the Dermatopathology Laboratory at [facility], directed by Dr. Lorna Larson. These tests need not be, and therefore are not, approved by the [place] Food and Drug Administration. The tests are used for clinical purposes. Billing Codes Specimen Charges Stain Charges 20445 1 4 11:31 AM CDT DERMATOPATHOLOGY LABORATORY Embedded Images 11:31 AM CDT DERMATOPATHOLOGY LABORATORY Pathology/Cytolo gy TISSUE SPECIMEN FROM SKIN / Unknown 04/11/2024 2:54 PM CDT 04/12/2024 11:38 AM CDT us Ailyn Bhatt DO LAB - PATHOLOGY/CYTOLOGY ORDERABLES Final Result DERMATOPATHOLOGY LABORATORY [facility] - Department of Dermatology [address], [address] Floor [address] [phone] documented in this encounter Visit Diagnoses Not on filedocumented in this encounter
== END 2025-02-24 09:10 | disposition home or self-care (01) ==
LOC: ANHIMG 09:10
PROVIDERS: PCP Internal Medicine; Visit Provider Obstetrics & Gynecology
DX: Z12.31 Encounter for screening mammogram for malignant neoplasm of breast (principal); R92.8 Other abnormal and inconclusive findings on diagnostic imaging of breast
CPT/HCPCS: 77063; 77067

== ENCOUNTER 2025-03-01 12:16 | Outpatient (CLI) | payer OTHER, SELFPAY ==
--- NOTE | ~2025-03-01 | MMUS_ITS ---
Examination: MM diagnostic ABUNDIO LT W ronaldo and US breast LT limited INDICATION: 64-year old female; BI-RADS 0, evaluate possible new focal area of architectural distorti on subareolar location left breast. COMPARISON: 02/24/2025 TECHNIQUE: Digital breast tomosynthesis True lateral and spot compression of the LEFT breast were obt ained with computer-aided detection to assist in interpretation of the study. FINDINGS: The breasts are almost entirely fatty. The focal asymmetry of concern in the subareolar left breast effaces on spot compression views consis tent with superimposition of fibroglandular tissue. LEFT BREAST ULTRASOUND FINDINGS: Targeted sonographic evaluation of the subareolar area was completed. There is no sonographic abnorma lity that correlates to the area of mammographic finding. IMPRESSION: 1. NO MAMMOGRAPHIC OR SONOGRAPHIC FINDING IN THE SUBAREOLAR LOCATION IN THE LEFT BREAST. THE MAMMOGRA PHIC FINDING REPRESENTS SUPERIMPOSITION OF FIBROGLANDULAR TISSUE. 2. RECOMMENDATION: RETURN TO ANNUAL SCREENING MAMMOGRAPHY. BI-RADS 2, BENIGN Reviewed, dictated and finalized at location B. IMPRESSION: 1. NO MAMMOGRAPHIC OR SONOGRAPHIC FINDING IN THE SUBAREOLAR LOCATION IN THE LEF T BREAST. THE MAMMOGRAPHIC FINDING REPRESENTS SUPERIMPOSITION OF FIBROGLANDULAR TISSUE. 2. RECOMMENDATION: RETURN TO ANNUAL SCREENING MAMMOGRAPHY. BI-RADS 2, BENIGN
--- OUTSIDE RECORDS SUMMARY | 2025-03-01 12:19 | XMS_ITS | Referral Summary ---
Author Organization [facility] [address] [facility] [address] Address [address] [place] [address] Care Team Providers Care Global Account Manager Name Role Phone Hugo Johnson MD Primary Care Provider [phone] Greg Dangelo MD Unavailable [phone] Encounters Date Type Department Care Team Description 01/20/2025 8:45 AM CDT Office Visit [facility] Cardiology [address] [place] [address] Alfredo Bo MD PAF (paroxysmal atrial fibrillation) (CMS/HCC) (Primary Dx); Hyperlipidemia LDL goal <130; Essential hypertension; Pulmonary HTN (HCC); DEBORAH (obstructive sleep apnea) from Last 3 Months Allergies No known active allergies Medications magnesium oxide (MAG-OX) 400 mg (241.3 mg elemental magnesium) tabletIndicatio ns:hypomagnesem ia Take 1 tablet (400 mg total) by mouth daily Active qey-F8-yck42-zi nu-wlt-yugm-bor 600 mg calcium- 800 unit-50 mg tablet [...] (02/10/2022): Added automatically from request for surgery [id number] Preop cardiovascular exam 01/23/2022 DEBORAH (obstructive sleep [...] on file 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 Gender Identity Not on file Sexual Orientation [...] on file Medical Devices Implanted Type Area Fabric Worker Fitter Device Identifier Shelf Expiration Date Model / Serial / Lot Kwasi Elder Implanted:Qty: 1 on 09/30/2019 by Agnes Elias DPM at [facility] Right: Calc[employer] C1713 07/11/2027 [id number] / / [id number] Description:[facility] ITEM# [id number] [employer] Cement Bone Simplex Gentamicin High Viscosity [facility] 6195-1-001 - Sn/A - [id number] Implanted:Qty: 1 on 02/28/2022 by Greg Dangelo MD at [facility] [employer] [facility] 04/27/2023 6195-1-001 / N/A / [id number] [employer] Cement Bone Simplex Gentamicin High Viscosity [facility] 6195-1-001 - Sn/A - [id number] Implanted:Qty: 1 on 02/28/2022 by Greg Dangelo MD at [facility] [employer] [facility] 04/27/2023 6195-1-001 / N/A / [id number] [employer] [id number] Attune S+ Cement Fix Bearing Knee 7 Baseplate Tibial - Sn/A - [id number] Implanted:Qty: 1 on 02/28/2022 by Greg Dangelo MD at [facility] [employer] [id number] 11/26/2031 [id number] / N/A / [id number] [employer] Attune Cemented Posterior Stabilize Knee Right 8 Component [id number] - Sn/A - [id number] Implanted:Qty: 1 on 02/28/2022 by Greg Dangelo MD at [facility] [employer] C1776 10/28/2031 [id number] / N/A / [id number] [employer] Attune 10mm Posterior Stabilize Fix Bearing Knee 8 Insert Tibial [id number] - Sn/A - [id number] Implanted:Qty: 1 on 02/28/2022 by Greg Dangelo MD at [facility] [employer] C1776 04/27/2026 [id number] / N/A / [id number] Procedures Procedure Name Priority Date/Time Associated Diagnosis [...] Final Result from Last 3 Months Insurance [facility] [employer] PPO [employer] [place] [employer] PPO Advance Directives For more information, please contact: [phone] * Full Code (Latest Code Status on File) Date Activated Date Inactivated Comments 02/28/2022 10:52 AM 02/28/2022 7:04 PM * Full Code Date Activated Date Inactivated Comments 09/30/2019 2:07 PM 09/30/2019 8:07 PM Care Teams Global Account Manager Relationship Specialty Start Date End Date Hugo Johnson MD PCP - General 12/26/16 Greg Dangelo MD Surgeon Orthopedic Surgery 02/28/22
--- OUTSIDE RECORDS SUMMARY | 2025-03-01 12:19 | XMS_ITS | Clinical Summary ---
Author Organization [facility] Address [address] [place] [address] Care Team Providers Care Heavy Forging Machine Operator Name Role Phone Unavailable Primary Care Provider Unavailabl e Source Comments [facility],non-owned Affiliates and Associated Physician Practices is amultiple site organization consisting of ambulatory clinics and hospital sitesin [place], [place], [place] and [place]. This disclosure is being madepursuant to the Care Everywhere program and may not contain all information available regarding this patient. Last updated 18.[facility] Social History Tobacco Use Types Packs/Day Years [...] patient's age to complete this topic Insurance [facility]
--- OUTSIDE RECORDS SUMMARY | 2025-03-01 12:19 | XMS_ITS | Encounter Summary ---
Author Organization [facility] Address [address] [place] [address] Care Team Providers Care Escort Patients Name Role Phone Unavailable Primary Care Provider Unavailabl e Encounter Details Date Type Department Care Team (Late st Contact Info) Description 04/11/2024 Lab Requisition [facility] - DermPath Lab [address] [facility] [place] [address] Ailyn Bhatt DO [address] [facility] [address] DE[place] [address] Social History Tobacco Use Types Packs/Day Years [...] PM CDT) Case Report Dermatopathology Report Case: [id number] Authorizing Provider: Ailyn Bhatt DO Collected: 04/11/2024 02:54 PM Ordering Location: [facility] Physician [facility] - Received: 04/12/2024 11:38 AM DermPath Lab [...] characteristic determined by the Dermatopathology Laboratory at [facility], directed by Dr. Lorna Larson. These tests need not be, and therefore are not, approved by the [place] Food and Drug Administration. The tests are used for clinical purposes. Billing Codes Specimen Charges Stain Charges 46187 1 4 11:31 AM CDT DERMATOPATHOLOGY LABORATORY Embedded Images 11:31 AM CDT DERMATOPATHOLOGY LABORATORY Pathology/Cytolo gy TISSUE SPECIMEN FROM SKIN / Unknown 04/11/2024 2:54 PM CDT 04/12/2024 11:38 AM CDT us Ailyn Bhatt DO LAB - PATHOLOGY/CYTOLOGY ORDERABLES Final Result DERMATOPATHOLOGY LABORATORY [facility] - Department of Dermatology [address], [address] [phone] documented in this encounter Visit Diagnoses Not on filedocumented in this encounter
--- OUTSIDE RECORDS SUMMARY | 2025-03-01 12:19 | XMS_ITS | Clinical Summary ---
Author Organization [facility] [address] Address [address] [place] [address] Care Team Providers Care Chief Order Dispatcher Name Role Phone Hugo Johnson MD Primary Care Provider [phone] Greg Dangelo MD Unavailable [phone] Allergies No known active allergies Medications magnesium oxide (MAG-OX) 400 mg (241.3 mg elemental magnesium) tabletIndicatio ns:hypomagnesem ia Take 1 tablet (400 mg total) by mouth daily Active zuh-P8-mjq26-zi su-hju-scbf-bor 600 mg calcium- 800 unit-50 mg tablet [...] (02/10/2022): Added automatically from request for surgery [id number] Preop cardiovascular exam 01/23/2022 DEBORAH (obstructive sleep apnea) 12/24/2017 Pulmonary HTN 12/24/2017 Hyperlipidemia LDL goal <130 12/24/2017 Essential hypertension 12/24/2017 PAF (paroxysmal atrial fibrillation) 02/11/2014 Overview (01/02/2017): A-fib Encounters Date Type Department Care Team Description 01/20/2025 8:45 AM CDT Office Visit [facility] Cardiology [address] [place] [address] Alfredo Bo MD PAF (paroxysmal [...] on file 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 Gender Identity Not on file Sexual Orientation [...] this topic Medical Devices Implanted Type Area Marine Machinist Device Identifier Shelf Expiration Date Model / Serial / Lot Biofoam Jama Wedge Implanted:Qty: 1 on 09/30/2019 by Agnes Elias DPM at [facility] Right: [employer] [id number] 07/11/2027 [id number] / / [id number] Description:[facility] ITEM# [id number] [employer] Cement Bone Simplex Gentamicin High Viscosity 40gm 6195-1-001 - Sn/A - [id number] Implanted:Qty: 1 on 02/28/2022 by Greg Dangelo MD at [facility] [employer] C1713 04/27/2023 6195-1-001 / N/A / [id number] [employer] Cement Bone Simplex Gentamicin High Viscosity 40gm 6195-1-001 - Sn/A - [id number] Implanted:Qty: 1 on 02/28/2022 by Greg Dangelo MD at [facility] [employer] C1713 04/27/2023 6195-1-001 / N/A / [id number] [employer] [id number] Attune S+ Cement Fix Bearing Knee 7 Baseplate Tibial - Sn/A - [id number] Implanted:Qty: 1 on 02/28/2022 by Greg Dangelo MD at [facility] [employer] [id number] 11/26/2031 [id number] / N/A / [id number] [employer] Attune Cemented Posterior Stabilize Knee Right 8 Component [id number] - Sn/A - [id number] Implanted:Qty: 1 on 02/28/2022 by Greg Dangelo MD at [facility] [employer] C1776 10/28/2031 [id number] / N/A / [id number] [employer] Attune 10mm Posterior Stabilize Fix Bearing Knee 8 Insert Tibial [id number] - Sn/A - [id number] Implanted:Qty: 1 on 02/28/2022 by Greg Dangelo MD at [facility] [employer] C1776 04/27/2026 [id number] / N/A / [id number] Procedures Procedure Name Priority Date/Time Associated Diagnosis [...] Final Result from Last 3 Months Insurance [employer] PPO [employer] PPO Advance Directives For more information, please contact: [phone] * Full Code (Latest Code Status on File) Date Activated Date Inactivated Comments 02/28/2022 10:52 AM 02/28/2022 7:04 PM * Full Code Date Activated Date Inactivated Comments 09/30/2019 2:07 PM 09/30/2019 8:07 PM Care Teams Chief Order Dispatcher Relationship Specialty Start Date End Date Hugo Johnson MD PCP - General 12/26/16 Greg Dangelo MD Surgeon Orthopedic Surgery 02/28/22
== END 2025-03-01 12:17 | disposition home or self-care (01) ==
LOC: ANHIMG 12:17
PROVIDERS: PCP Internal Medicine; Visit Provider Obstetrics & Gynecology
DX: R92.322 Mammographic fibroglandular density, left breast (principal); N64.89 Other specified disorders of breast
CPT/HCPCS: 76642; 77061; 77065; G0279